=== PATIENT | female | born 1985 | race Caucasian/White ===

== ENCOUNTER 2019-02-19 16:46 | Outpatient (CLI) | payer OTHER ==
[~2019-02-19] VITALS: Ht 172.7 cm; Wt 147.2 kg
[~2019-02-19 16:46] MED LIST: DOCU-144 PO; FERR256T PO; IBUP-1542 PO; PREN1TAB79 PO
[2019-02-19] MEDS ORDERED: ACETAMINOPHEN 500 MG TAB PO STA (16:57)
[2019-02-19 18:11] VITALS: BP 118/58; PULSE 77; RESP 18; Ht 172.7 cm; Wt 147.2 kg
--- NOTE | 2019-02-19 18:37 | TRIAGE ---
OB Triage Datetime Report Generated by CPN: 02/19/2019 18:37 Datetime: 02/19/2019 18:29 Stage of : OB Triage Maternal Assessment Level of Consciousness: Keenly Alert, Responsive Labor Evaluation Frequency: 0 Monitor Mode: External Resting Tone [place]: Relaxed Heart Rate FHR Baseline Rate: 150 Monitor Mode: External US Variability: Moderate 6-25 bpm Accelerations: 15X15 Decelerations: None Category: Category I Pain Assessment Pain Scale: 0 Pain Goal: 3 Vaginal Exam Membrane Status: Intact Vaginal Bleeding: None Datetime: 02/19/2019 17:59 Assessment Type: Triage Maternal Assessment Level of Consciousness: Keenly Alert, Responsive DTR's/Clonus: DTRs 2+; No Clonus Headache: Denies Blurred Vision: No Respiratory Effort: Unlabored; Regular Rhythm; Equal Expansion Breath Sounds, Left: Clear and Equal Breath Sounds, Right: Clear and Equal Nausea/Vomiting: Denies RUQ Epigastric Pain: Denies Lower Extremities Edema: Bilateral Lower Extremities Degree: 1+ Upper Extremities Edema: Bilateral Upper Extremities Degree: 1+ Facial Edema: None Fall Risk Assessment History of Falling: (0) No Secondary Diagnosis: (0) No Ambulatory Aid: (0) Bedrest/Nurse Assist IV Therapy: (0) No Gait: (0) Normal/Bedrest/Immobile Mental Status: (0) Oriented to Own Ability Fall Score: 0 Fall Risk Score Definition: No Risk: No action required Datetime: 02/19/2019 17:58 Time of Arrival: 02/19/2019 16:40 EGA: 34.6 Arrived By: Ambulatory Arrived From: Home Chief Complaint: pt. sent in for eval. of HBP IN THE CLINIC Movement: Present Contractions: Denies/Absent Rupture of Membranes: Denies Vaginal Bleeding: None Vaginal Discharge: Denies Recent Sexual Intercouse: Denies Abdominal Trauma: Not Applicable Patient Complaints: Headache Time Provider Notified: 02/19/2019 16:45 Provider Notified: HADADIAN Initial Plan: PIH PANEL/BPP/EFW Datetime: 02/19/2019 17:24 Monitor Mode: External Monitor Mode: External US Datetime: 02/11/2019 16:00 Monitor Mode: External Resting Tone [place]: Relaxed Heart Rate FHR Baseline Rate: 130 Monitor Mode: External US FHR Baseline Changes: No Baseline Change Variability: Moderate 6-25 bpm Accelerations: 15X15 Decelerations: None Category: Category I Pain Presence: None/Denies Datetime: 02/11/2019 15:13 EGA: 33.5 Datetime: 02/11/2019 14:25 Fall Score: 0 Fall Risk Score Definition: No Risk: No action required
--- NOTE | 2019-02-20 13:15 | PN ---
Triage Information Date/Time 02/19/2019 late entry note Reason for visit: Elevated BP, r/p PIH Weeks of Gestation 34 weeks and 6 days /Para Diabetes: none Hypertention: none Additional information 33-year-old G5, P3 with IUP at 34 weeks and 6 days was sent from the clinic for rule out PIH.Noted to have elevated 130/80s in the office and she was complaining of headache. Denies blurred vision epigastric pain or right upper quadrant pain. Denies any leaking of fluid, vaginal bleeding or decreased movement. Objective Vital Signs Date Temp Pulse Resp B/P (MAP) Pulse Ox O2 O2 Flow FiO2 Time Delivery Rate 02/19/19 98.3 77 18 118/58 Room Air 18:11 (78) Heart Rate: 130's Heart Rate Comments Category 1 Contractions: None Exam General appearance: Alert and oriented x4 does not appear to be in any acute distress Abdomen: Soft, gravid, fundal height consistent with gestational age, no tenderness NST: Category 1 No contraction on the monitor Results/Medications Result Diagram: 02/19/19 1719 02/19/19 1720 Results 24 hrs Laboratory Tests Test 02/19/19 16:55 02/19/19 17:19 02/19/19 17:20 Urine Color CIARAN Urine Clarity SLIGHTLY CLOUDY A Urine pH 5.0 Urine Specific [place] 1.031 H Urine Ketones NEGATIVE Urine Nitrite NEGATIVE Urine Bilirubin NEGATIVE Urine Urobilinogen 2+ H Urine Leukocyte Esterase NEGATIVE Urine Microscopic RBC 2 Urine Microscopic WBC 1 Urine Squamous FEW Epithelial Cells Urine Mucus MANY A Urine Hemoglobin NEGATIVE Urine Random Creatinine 265.97 Urine Protein/Creatinine Ratio 0.02 Urine Glucose NEGATIVE Urine Total Protein 7.0 White Blood Count 9.6 Red Blood Count 3.81 L Hemoglobin 10.7 L Hematocrit 32.7 L Mean Corpuscular Volume 85.8 Mean Corpuscular Hemoglobin 28.1 L Mean Corpuscular 32.7 Hemoglobin Concent Red Cell Distribution Width 13.6 Platelet Count 286 Mean Platelet Volume 10.3 Immature Granulocytes % 0.300 Neutrophils % 69.1 Lymphocytes % 21.1 Monocytes % 9.2 Eosinophils % 0.1 Basophils % 0.2 Nucleated Red Blood Cells % 0.0 Immature Granulocytes # 0.030 Neutrophils # 6.7 Lymphocytes # 2.0 Monocytes # 0.9 Eosinophils # 0.0 Basophils # 0.0 Nucleated Red Blood Cells # 0.0 Sodium Level 136 Potassium Level 3.6 Chloride Level 107 Carbon Dioxide Level 22 Anion Gap 7 Blood Urea Nitrogen 9 Creatinine 0.49 Est Glomerular Filtrat > 60 Rate mL/min Glucose Level 95 Uric Acid 4.4 Calcium Level 8.8 Total Bilirubin 0.8 Direct Bilirubin 0.00 Indirect Bilirubin 0.8 Aspartate Amino 24 Transf (AST/SGOT) Alanine 23 Aminotransferase (ALT/SGPT) Alkaline Phosphatase 113 Lactate Dehydrogenase 506 Total Protein 6.9 Albumin 3.2 L Globulin 3.70 H Albumin/Globulin Ratio 0.86 Imaging Results PROCEDURE: US OB biophysical profile. CLINICAL INDICATION: decreased movements, hypertension TECHNIQUE: Multiple sonographic images of the pelvis were obtained. The images were reviewed on a PACS workstation. COMPARISON: 02/11/2019 FINDINGS: There is a single live intrauterine gestation. Cardiac activity is present with 140 beats per minute. There is a vertex presentation. The placenta is anterior. There is no evidence of placental abruption. JOSEPH = 11.9 cm. Biophysical profile: movement 2/2 tone 2/2. breathing 2/2 JOSEPH 2/2 Total 03/06 RPTAT: AA . IMPRESSION: Normal biophysical profile. PROCEDURE: US OB. CLINICAL INDICATION: Size and dates , hypertension TECHNIQUE: Multiple sonographic images of the pelvis and gravid uterus were obtained. The images were reviewed on a PACS workstation. COMPARISON: US 02/11/2019 FINDINGS: There is a single live intrauterine gestation. Cardiac activity is present with 140 beats per minute. There is a vertex presentation. The placenta is anterior. There is no evidence of placental abruption. JOSEPH = 11.9 cm. Measurements: BPD = 8.7 cm, 35 weeks and 0 days HC = 31.2 cm, 35 weeks and 0 days AC = 31.4 cm, 35 weeks and 2 days FL = 6.7 cm, 34 weeks and 2 days Gestational Age: AUA estimated gestational age: 34 weeks 6 days LMP estimated gestational age: 34 weeks 6 days AUA estimated date of delivery: 03/27/19 The EFW = 2562 g, 49.7%ile based on LMP age. RPTAT: AA IMPRESSION: Single live intrauterine gestation of 34 weeks 6 days by ultrasound criteria. .Blu Hamilton MD, MD Date Time Disposition: Discharge Assessment/Plan IUP at 34 weeks and 6 days Borderline elevated blood pressure. Blood pressure reading does not meet the criteria for preeclampsia. All the blood pressures during monitoring in triage less than 130/85 PIH labs are normal testing reassuring Patient's headache resolved with Tylenol and hydration Strict labor precaution, kick count and preeclampsia precaution discussed with the patient Patient verbalized understanding. All questions were answered to patient's best satisfaction Follow-up with OB office within 48 hours after discharge from the hospital discussed with patient RUBY OLGUIN MD Feb 20, 2019 13:15
== END 2019-02-19 18:40 | disposition home or self-care (01) ==
LOC: OBT 16:46 → L-D 16:49 → OBT 18:40
PROVIDERS: ATTEND Obstetrics & Gynecology
DX: O13.3 Gestational [pregnancy-induced] hypertension without significant proteinuria, third trimester (principal); Z3A.35 35 weeks gestation of pregnancy
CPT/HCPCS: 76815; 76818; 80053; 81001; 81003; 82570; 83615; 84560; 85025; Z7500; Z7610; G0463

== ENCOUNTER 2019-03-10 12:32 | Outpatient (CLI) | payer OTHER ==
[2019-03-10 13:43] VITALS: BP 108/54; PULSE 112; RESP 20
--- NOTE | 2019-03-10 14:29 | PN ---
Triage Information Date/Time Subjective: complaints of contractions. Objective: Vital Signs Date Temp Pulse Resp B/P (MAP) Pulse Ox O2 O2 Flow FiO2 Time Delivery Rate 03/10/19 98.2 112 20 108/54 Room Air 13:43 (72) General: No apparent distress Abdomen: Gravid Assessment/Plan: 1. Rule out labor-two exams 2 hours apart, if unchanged, discharge to home Disposition: [] Reason for visit: Weeks of Gestation 37.4 /Para 5/4 Objective Vital Signs Date Temp Pulse Resp B/P (MAP) Pulse Ox O2 O2 Flow FiO2 Time Delivery Rate 03/10/19 98.2 112 20 108/54 Room Air 13:43 (72) MILESTONE,LUIZ LANGFORD Mar 10, 2019 14:29
--- NOTE | 2019-03-10 16:28 | TRIAGE ---
OB Triage Datetime Report Generated by CPN: 03/10/2019 16:28 Datetime: 03/10/2019 16:16 Labor Evaluation Frequency: irrreg. Monitor Mode: External Quality: Mild Pattern: Normal: <= 5 Contractions in 10 Minutes Resting Tone [place]: Relaxed Heart Rate FHR Baseline Rate: 130 Monitor Mode: External US FHR Baseline Changes: No Baseline Change Variability: Moderate 6-25 bpm Accelerations: 15X15 Decelerations: None Category: Category I Vaginal Exam Dilatation (cms): 1.0 Effacement (%): 50 Station: -3 Exam By: S Chait Vaginal Bleeding: None Cervix, Consistency: Soft Cervix, Position: Posterior Presentation 'A': Cephalic Datetime: 03/10/2019 14:17 FHR Baseline Changes: No Baseline Change Vaginal Exam Dilatation (cms): 0.5 Effacement (%): 50 Station: -3 Exam By: Hakan Merritt Vaginal Bleeding: None Cervix, Consistency: Soft Cervix, Position: Posterior Datetime: 03/10/2019 13:37 Stage of : OB Triage Assessment Type: Triage Maternal Assessment Level of Consciousness: Keenly Alert, Responsive DTR's/Clonus: DTRs 2+; No Clonus Headache: Denies Blurred Vision: No Respiratory Effort: Unlabored; Regular Rhythm; Equal Expansion Breath Sounds, Left: Clear and Equal Breath Sounds, Right: Clear and Equal Nausea/Vomiting: Denies RUQ Epigastric Pain: Denies Lower Extremities Edema: Bilateral Lower Extremities Degree: 1+ Upper Extremities Edema: None Degree: None Facial Edema: None Temperature Route: Axillary Fall Risk Assessment History of Falling: (0) No Secondary Diagnosis: (0) No Ambulatory Aid: (0) Bedrest/Nurse Assist IV Therapy: (0) No Gait: (0) Normal/Bedrest/Immobile Mental Status: (0) Oriented to Own Ability Fall Score: 0 Fall Risk Score Definition: No Risk: No action required Datetime: 03/10/2019 13:34 Arrived By: Ambulance Arrived From: Home Chief Complaint: hot flashes and occasioanl UC's Movement: Present Contractions: Irregular Rupture of Membranes: Denies Vaginal Bleeding: None Vaginal Discharge: Denies Recent Sexual Intercouse: Denies Abdominal Trauma: Not Applicable Datetime: 02/19/2019 17:59 Fall Score: 0 Fall Risk Score Definition: No Risk: No action required Datetime: 02/19/2019 17:58 EGA: 34.6 Datetime: 02/11/2019 15:13 EGA: 33.5 Datetime: 02/11/2019 14:25 Fall Score: 0 Fall Risk Score Definition: No Risk: No action required
== END 2019-03-10 16:25 | disposition home or self-care (01) ==
LOC: OBT 12:32 → L-D 12:34 → OBT 16:25
PROVIDERS: ATTEND Obstetrics & Gynecology
DX: O47.1 False labor at or after 37 completed weeks of gestation (principal); Z3A.37 37 weeks gestation of pregnancy
CPT/HCPCS: 76818; 81001; Z7500; G0463

== ENCOUNTER 2019-03-11 13:06 | Inpatient (IN) | payer OTHER ==
[~2019-03-11] VITALS: Ht 172.7 cm; Wt 149.0 kg
[2019-03-11 13:39] VITALS: Ht 172.7 cm; Wt 149.0 kg
[2019-03-13 10:15] VITALS: BP 119/59; PULSE 71; RESP 18
== END 2019-03-13 16:00 | disposition home or self-care (01) | DRG 807 ==
LOC: OBT 13:06 → L-D 13:07 → MS1 03-12 10:35
PROVIDERS: ADMIT Obstetrics & Gynecology; ATTEND Obstetrics & Gynecology
PROC: 10E0XZZ Delivery of Products of Conception, External Approach (ICD-10-PCS; principal; 2019-03-12)
DX: O13.4 Gestational [pregnancy-induced] hypertension without significant proteinuria, complicating childbirth (principal); Z37.0 Single live birth; O99.214 Obesity complicating childbirth; E66.01 Morbid (severe) obesity due to excess calories; Z3A.37 37 weeks gestation of pregnancy
CPT/HCPCS: 62322; 80053; 84560; 85025; 85384; 85610; 85730; 86592; 86850; 86900; 86901; 87340; J1580; J2590; J3010; J7120